=== PATIENT | male | born 1960 | race Caucasian/White ===

== ENCOUNTER 2017-05-14 09:27 | Emergency (ER) | payer MEDICAID ==
[~2017-05-14] VITALS: Ht 162.6 cm; Wt 65.0 kg
[~2017-05-14 09:27] MED LIST: BENA20TA3 PO; GLIP10TA10 PO; HYDR25TA PO; METF10002 PO
[2017-05-14 09:37] VITALS: BP 126/95
== END 2017-05-14 16:39 | disposition left against medical advice (07) ==
LOC: ER 16:25
DX: R51 Headache (principal); Z53.21 Procedure and treatment not carried out due to patient leaving prior to being seen by health care provider

== ENCOUNTER → 2019-08-28 | Day surgery (SDC) | payer MEDICAID ==
[~2019-08-28] VITALS: Ht 167.6 cm; Wt 70.3 kg
[~2019-08-28] MED LIST changes: +ACETAMINOPHEN WITH CODEINE 300/30MG TABLET ONE; +ACETAMINOPHEN WITH CODEINE 300/30MG TABLET PO PRN; +BALANCED SALT IRRIG SOLN 15ML ONE; +BENA20TA10 PO; -BENA20TA3 PO; +CIPROFLOXACIN 0.3% OPHTH SOLN 2.5ML ONE; +CIPROFLOXACIN 0.3% OPHTH SOLN 2.5ML RIGHTEYE SCH; +ERYTHROMYCIN BASE 0.5% OPHTH OINT UD ONE; +FENTANYL CITRATE/PF 50MCG/ML 2ML VIAL ONE; +HYDRALAZINE 20MG/ML VIAL IV PRN; +HYDROMORPHONE HCL/PF 2MG/ML CPJ IV PRN; +INSULIN LISPRO(HUMALOG)300 UNIT/3ML VIAL SUBCUT NR; +LIDOCAINE HCL 2%/EPINEPHRINE 1:100,000 20 ML VIAL INFIL ONE; +METF-416 PO; -METF10002 PO; +ONDANSETRON HCL 4MG/2ML INJ IV PRN; +PILOCARPINE HCL 2% OPHTH DROPS 15ML ONE; +SODIUM CHLORIDE 0.9% 1,000 ML IV SCH; +TETRACAINE 0.5% OPHTH DROPS 4ML ONE
[2019-08-28 10:27] VITALS: BP 111/62
== END | disposition home or self-care (01) ==
LOC: OR 07:01
PROVIDERS: ATTEND Ophthalmology
DX: H11.001 Unspecified pterygium of right eye (principal); E11.319 Type 2 diabetes mellitus with unspecified diabetic retinopathy without macular edema; I10 Essential (primary) hypertension; E78.00 Pure hypercholesterolemia, unspecified; Z79.899 Other long term (current) drug therapy; Z79.84 Long term (current) use of oral hypoglycemic drugs
CPT/HCPCS: 65426; 82962; 88304; J1815; J3010; J3490

== ENCOUNTER 2023-04-05 12:52 | Inpatient (IN) | payer MEDICAID, OTHER ==
[~2023-04-05] VITALS: Ht 165.1 cm; Wt 75.4 kg
[~2023-04-05 12:52] MED LIST changes: -ACETAMINOPHEN WITH CODEINE 300/30MG TABLET ONE; -ACETAMINOPHEN WITH CODEINE 300/30MG TABLET PO PRN; -BALANCED SALT IRRIG SOLN 15ML ONE; +BENA-8 PO; -BENA20TA10 PO; -CIPROFLOXACIN 0.3% OPHTH SOLN 2.5ML ONE; -CIPROFLOXACIN 0.3% OPHTH SOLN 2.5ML RIGHTEYE SCH; -ERYTHROMYCIN BASE 0.5% OPHTH OINT UD ONE; -FENTANYL CITRATE/PF 50MCG/ML 2ML VIAL ONE; -HYDRALAZINE 20MG/ML VIAL IV PRN; -HYDROMORPHONE HCL/PF 2MG/ML CPJ IV PRN; -INSULIN LISPRO(HUMALOG)300 UNIT/3ML VIAL SUBCUT NR; -LIDOCAINE HCL 2%/EPINEPHRINE 1:100,000 20 ML VIAL INFIL ONE; -ONDANSETRON HCL 4MG/2ML INJ IV PRN; -PILOCARPINE HCL 2% OPHTH DROPS 15ML ONE; -SODIUM CHLORIDE 0.9% 1,000 ML IV SCH; -TETRACAINE 0.5% OPHTH DROPS 4ML ONE
[2023-04-05] MEDS ORDERED: ACETAMINOPHEN 325MG TABLET PO STA (13:08)
[2023-04-05 13:24] LABS: BASOPHILS % 0.8 % (0.0-2.0); EOSINOPHILS % 2.7 % (0.0-5.0); HEMATOCRIT. 31.8 % (42.0-52.0); HEMOGLOBIN. 11.4 g/dL (14.0-18.0); LYMPHOCYTES % 29.7 % (20.0-50.0); MEAN CORPUSCULAR HEMOGLOBIN 29.4 pg (28.0-32.0); MEAN CORPUSCULAR VOLUME 82.2 fL (80.0-94.0); MEAN PLATELET VOLUME 6.3 fl (7.4-10.4); MONOCYTES % 6.3 % (2.0-8.0); NEUTROPHILS % 60.5 % (40.0-76.0); PLATELET 369 x1000/uL (130-400); RED BLOOD CELL COUNT 3.86 mill/uL (4.7-6.1); RED CELL DISTRIBUTION WIDTH 15.1 % (11.6-14.6)
[2023-04-05 13:32] LABS: CHLORIDE 105 mEq/L (98-107)
[2023-04-05] MEDS ORDERED: SODIUM CHLORIDE 0.9% 1,000 ML IV ONE (17:45)
[2023-04-05] MEDS ORDERED: ACETAMINOPHEN 325MG TABLET PO PRN (19:45)
[2023-04-05] MEDS ORDERED: ONDANSETRON HCL 4MG/2ML INJ IV PRN (19:45)
[2023-04-05] MEDS ORDERED: DIPHENHYDRAMINE 50MG/ML VIAL IV PRN (19:45)
[2023-04-05] MEDS ORDERED: IPRATROPIUM/ALBUTEROL 0.5-3(2.5)MG/3ML NEB HHN PRN (19:45)
[2023-04-05 22:00] VITALS: BP 180/94
[2023-04-05 22:02] VITALS: BP 180/94
[2023-04-05 23:00] VITALS: BP 151/85
[2023-04-06 00:01] VITALS: BP 134/78
[2023-04-06 03:22] VITALS: BP 139/79
[2023-04-06 05:18] LABS: EOSINOPHILS % 4.3 % (0.0-5.0); HEMATOCRIT. 31.5 % (42.0-52.0); HEMOGLOBIN. 10.8 g/dL (14.0-18.0); LYMPHOCYTES % 39.1 % (20.0-50.0); MEAN CORPUSCULAR HEMOGLOBIN 28.6 pg (28.0-32.0); MEAN CORPUSCULAR VOLUME 83.7 fL (80.0-94.0); MEAN PLATELET VOLUME 6.5 fl (7.4-10.4); MONOCYTES % 8.2 % (2.0-8.0); NEUTROPHILS % 47.4 % (40.0-76.0); PLATELET 341 x1000/uL (130-400); RED BLOOD CELL COUNT 3.76 mill/uL (4.7-6.1); RED CELL DISTRIBUTION WIDTH 15.4 % (11.6-14.6)
[2023-04-06 05:22] LABS: CHLORIDE 107 mEq/L (98-107)
[2023-04-06 08:00] VITALS: BP 156/88
[2023-04-06] MEDS ORDERED: PNEUMOCOCCAL 23-VAL P-SAC VAC 0.5 ML IM ONE (10:00)
[2023-04-06 12:09] VITALS: BP 126/65
[2023-04-06 15:33] LABS: HEPATITIS B SURFACE ANTIGEN NEGATIVE
[2023-04-06 16:00] VITALS: BP 128/65
[2023-04-06] MEDS ORDERED: DEXTROSE 50% WATER 50ML SYRINGE IV PRN (18:45)
[2023-04-06 20:00] VITALS: BP 129/73
[2023-04-06] MEDS: INSULIN LISPRO 100 UNITS/ML SUBCUT SCH (20:27)
[2023-04-06] MEDS: BLOOD SUGAR DIAGNOSTIC STRIP TEST SCH (20:27)
[2023-04-06] MEDS ORDERED: AMLODIPINE 5MG TABLET PO SCH (21:00)
[2023-04-07] VITALS: BP 114/61
[2023-04-07 04:00] VITALS: BP 113/69
[2023-04-07] MEDS: BLOOD SUGAR DIAGNOSTIC STRIP TEST SCH (06:50)
[2023-04-07] MEDS: INSULIN LISPRO 100 UNITS/ML SUBCUT SCH (06:56)
[2023-04-07 08:00] VITALS: BP 150/69
[2023-04-07] MEDS ORDERED: ASPIRIN 81MG EC TABLET PO SCH (09:00)
[2023-04-07] MEDS ORDERED: AMLODIPINE 5MG TABLET PO SCH (09:00)
[2023-04-07] MEDS ORDERED: AMLO5TAB88 PO (10:17)
[2023-04-07] MEDS ORDERED: ASPI-1406 PO (10:17)
[2023-04-07 11:20] VITALS: BP 160/84
[2023-04-07 12:00] VITALS: BP 160/84
== END 2023-04-07 12:00 | disposition home or self-care (01) | DRG 199 ==
LOC: ER 12:52 → 3WST 18:15 → EDBEDREQTM 18:24 → EDBEDREQ 18:24
PROVIDERS: ADMIT Internal Medicine; ATTEND Internal Medicine
DX: I16.0 Hypertensive urgency (principal); I95.89 Other hypotension; E11.9 Type 2 diabetes mellitus without complications; E66.9 Obesity, unspecified; I34.0 Nonrheumatic mitral (valve) insufficiency; E78.00 Pure hypercholesterolemia, unspecified; I10 Essential (primary) hypertension; T46.5X5A Adverse effect of other antihypertensive drugs, initial encounter; Z68.28 Body mass index [BMI] 28.0-28.9, adult; Y92.89 Other specified places as the place of occurrence of the external cause
CPT/HCPCS: 36415; 80053; 82962; 83036; 84484; 85025; 86803; 87340; 90732; 93005; 93306; 93970; 99285; J1815; J7030